=== PATIENT | male | born 1965 | race Caucasian/White ===

== ENCOUNTER 2018-11-23 06:19 | Day surgery (SDC) | payer OTHER ==
[~2018-11-23] VITALS: Ht 162.6 cm; Wt 91.6 kg
[2018-11-23 07:25] VITALS: Ht 162.6 cm; Wt 91.6 kg
[2018-11-23 07:27] VITALS: BP 140/86; PULSE 83; RESP 16
--- NOTE | 2018-11-23 07:28 | PREAC ---
Date/Time of Note Date/Time of Note DATE: 11/23/18 TIME: 07:27 Anesthesia Eval and Record Evaluation Time Pre-Procedure Interview DATE: 11/23/18 TIME: : Age 53 Sex male NPO: 8 hrs Preoperative diagnosis Colon screening Planned procedure Colonoscopy Past Medical History Past Medical History: Includes GI: Obesity Surgery & Anesthesia Issues No known issue Meds Anticoagulation: No Beta Marta within 24 hr: No Reason Beta Marta not given: Pt. not on B-Marta Meds reviewed: Yes Allergies Allergies Reviewed: Yes Labs/Studies Labs Reviewed: Reviewed by anesthesiologist test: N/A Pre-procedure Exam Airway: Adequate mouth opening Mallampati: Mallampati II Teeth: Normal Lung: Normal Heart: Normal ASA Physical Status ASA physical status: 2 Emergency: None Planned Anesthetic General/MAC: MAC Planned Pain Management Parenteral pain med Pre-operative Attestations Prior to commencing anesthesia and surgery, the patient was re-evaluated, there was verification of: *The patient's identity *The results of appropriate recent lab work and preoperative vital signs *The above evaluation not changing prior to induction *Anesthetic plan, risk benefits, alternative and complications discussed with patient/family; questions answered; patient/family understands, accepts and wishes to proceed. CHAS MATHUR MD Nov 23, 2018 07:28
[2018-11-23] MEDS ORDERED: NO ACTIVE MEDS (07:33)
[2018-11-23] MEDS ORDERED: PROPOFOL 20 ML ONE (07:39)
[2018-11-23] MEDS ORDERED: FENTAnyl 50 MCG/ML VIAL IV PRN ×3 (08:00)
[2018-11-23] MEDS ORDERED: OXYCODONE/ACETAMINOPHEN (5/325) TAB PO PRN ×2 (08:00)
[2018-11-23] MEDS ORDERED: MEPERIDINE 25 MG INJ IV PRN (08:00)
[2018-11-23] MEDS ORDERED: ONDANSETRON 4 MG INJ IV PRN (08:00)
[2018-11-23] MEDS ORDERED: DIPHENHYDRAMINE 50 MG INJ IV PRN (08:00)
[2018-11-23] MEDS ORDERED: MIDAZOLAM 1 MG/ML 2 ML INJ IV PRN (08:00)
[2018-11-23] MEDS ORDERED: LABETALOL HCL 20MG INJ IV PRN (08:00)
[2018-11-23] MEDS ORDERED: hydrALAzine 20 MG INJ IV PRN (08:00)
[2018-11-23] MEDS ORDERED: EPHEDrine SULFATE 50 MG/5 ML SYG IV PRN (08:00)
[2018-11-23] MEDS ORDERED: METOCLOPRAMIDE 10 MG INJ IV PRN (08:00)
--- NOTE | 2018-11-23 09:54 | PAC ---
Date/Time of Note Date/Time of Note DATE: 11/23/18 TIME: 09:52 Post-Anesthesia Notes Post-Anesthesia Note Last documented vital signs Vital Signs Date Temp Pulse Resp B/P (MAP) Pulse Ox O2 O2 Flow FiO2 Time Delivery Rate 11/23/18 98.3 83 16 140/86 96 Room Air 07:27 (104) Activity: WNL Respiratory function: WNL Cardiovascular function: WNL Mental status: Baseline Pain reasonably controlled: Yes Hydration appropriate: Yes Nausea/Vomiting absent: Yes Comments BT: 98.2, BP: 142/92, HR: 85, RR: 16, PULSE OX: 98 CHAS MATHUR MD Nov 23, 2018 09:54
== END 2018-11-23 12:34 | disposition home or self-care (01) ==
LOC: GIL 06:19
PROVIDERS: ATTEND Internal Medicine Gastroenterology
DX: Z12.11 Encounter for screening for malignant neoplasm of colon (principal); K64.8 Other hemorrhoids
CPT/HCPCS: 88305